=== PATIENT | female | born 1995 | race Hispanic/Latino ===

== ENCOUNTER 2018-08-31 22:26 | Inpatient (IN) | payer OTHER ==
[~2018-08-31 22:26] MED LIST: Bupivacaine/Epinephrine 0.25% 30 ML VIAL ONE
[2018-08-31 23:09] VITALS: BMI 31.1
[2018-09-01] MEDS ORDERED: Butorphanol Tartrate 1 MG/ML VIAL SLOW IVP PRN (00:05)
[2018-09-01] MEDS ORDERED: Acetaminophen 500 MG TAB PO PRN (00:05)
[2018-09-01] MEDS ORDERED: NS / Oxytocin 40 units/1000ml 1,000 ML IV PRN (00:05)
[2018-09-01] MEDS ORDERED: Ibuprofen 800 MG TAB PO PRN (00:05)
[2018-09-01] MEDS ORDERED: Lidocaine 1% (PF) 30 ML VIAL SC PRN ×2 (00:05→09:44)
[2018-09-01] MEDS ORDERED: Promethazine HCl 25 MG/ML VIAL IM PRN ×2 (00:05→15:46)
[2018-09-01] MEDS ORDERED: Misoprostol 200 MCG TAB PR PRN (00:05)
[2018-09-01] MEDS ORDERED: Ondansetron PF 4 MG/2 ML Vial IVP PRN ×3 (00:05→23:23)
--- NOTE | 2018-09-01 00:23 | PDOC.FPROB ---
FMR OB H&P: HPI - History of Present Illness Chief Complaint: contractions, leaking Indentification: 23 yr old G1 at 40.2 wks by LMP c/w 13.1 wk sono History of Present Illness: Patient reports loosing her mucous plug 2 days ago. Yesterday around 1100 she started to have contractions and then some more mucousy discharge that persisted with some blood with it. She was feeling contractions q 10 min and decided to come in. Primary Care Physician: Dr. Charisma Kaplan FMR OB H&P: Current - Care : G1 Para: 0 Gestational age: 40.2 Due date: 08/30/2018 Dating Criteria: LMP c/w 13.1 wk sono Total weight gain: approx 35 lbs Course/Complications: GERD and 3T anemia of - OB Labs Blood type: B RH: positive Antibody Screen: negative HIV: negative RPR: negative HepBsAg: negative Rubella: immune Quad screen: negative Urine drug screen: not done Gonorrhea: negative Chlamydia: negative Pap Smear: NILM on 02/05/2018 1 hour gtt: 89 A1c: 4.7 GBS: negative H&H: 10.5/30.8 Platelets: 190 Additional labs: quant gold neg - First Trimester Ultrasound First trimester: LMP RAGHAV: 08/30/17 LMP GA: 13.1 wks RAGHAV by US: 08/28/17 GA by US: 13.3 wks - Anatomy Survey Anatomy survey: 20.4 wk GA anatomy normal low lying placenta 1.5 cm from os - Additional Ultrasound Additional: 32.1 wks GA- fundal placenta, low lying resolved FMR OB H&P: History - Past Medical History PMH: none - OB History OB History: none - OFFAL SEPARATOR History OFFAL SEPARATOR History: none - Surgical History Sx History: none - Social History Social History: No smoking, drugs, alcohol FMR OB H&P: Medications - Current Home Medications: Medication Instructions Recorded Confirmed Type Pnv No.95/Ferrous Fum/Folic AC 1 tab PO DAILY 08/31/18 08/31/18 History [ Vitamins Tablet] Ranitidine HCl [Acid Design Assembler] 150 mg PO BID 08/31/18 08/31/18 History Allergies/Adverse Reactions: Allergies Allergy/AdvReac Type Severity Reaction Status Date / Time No Known Allergies Allergy Verified 08/31/18 23:01 FMR OB H&P: ROS - Review of Systems General: denies: fever/chills Eyes: denies: vision changes ENT: denies: nasal congestion, rhinorrhea Cardiovascular: denies: chest pain Respiratory: reports: cough, congestion. denies: shortness of breath Gastrointestinal: denies: abdominal pain, nausea, vomiting Genitourinary (Female): reports: vaginal discharge, contractions. denies: dysuria FMR OB H&P: Vital Signs - Maternal Vital signs: Vital Signs - First Documented Temp Pulse Resp BP 98.2 F 92 18 133/83 08/31/18 22:59 08/31/18 22:59 08/31/18 22:59 08/31/18 22:59 - Heart Tones Baseline: 145 Variability: moderate Acceleration: present Deceleration: absent Category: category 1 [place] contractions every: 2-5 min FMR OB H&P: Physical Exam - Physical Exam General: awake, alert and oriented HEENT: normocephalic and atraumatic Heart: RRR, normal S1/S2, no murmurs/rubs/gallops, no edema General: CTAB, no respiratory distress Abdomen: gravid, non-tender Skin: no rash, good tugor Lymphatic: no unusual bruising or bleeding Psychiatric: intact recent and remote memory - Pelvic Exam Vulva: normal hair distribution, no masses, no lesions Cervix: no masses, no lesions SVE: Bloody fluid, valsalva performed with fluid pooling FMR OB H&P: A/P - Problem List (1) Current Visit: Yes Status: Acute (2) SROM (spontaneous rupture of membranes) Current Visit: Yes Status: Acute Code(s): [id number] - (3) Anemia affecting Current Visit: Yes Status: Acute Code(s): O99.019 - ANEMIA COMPLICATING , UNSPECIFIED TRIMESTER Discussion: Date/Time: 09/01/18 0020 sIUP with SROM - Cat 1 strip, contractions q2-5 min - Sterile exam showed bloody pooling, valsalva with increased fluid. Best estimate is SROM @ 1100 on 08/31 though patient reports very minimal fluid - 2.5/80/-1 per nurse check @ 23:15 - plans to bottle feed - undecided on epidural - plan to admit to L&D for labor Anemia of in 3T - Hgb 10.5 Hx low lying placenta - resolved on 32 week ultrasound This H&P was discussed with Dr. Pérez who agrees with the above documentation and plan.
[2018-09-01] MEDS: Lactated Ringer's 1,000 ML IV SCH ×3 (00:25→16:53)
[2018-09-01 01:27] LABS: Hemoglobin 10.4 g/dL (12.0-16.0); Mean Corpuscular HGB CONC 33.4 g/dL (32.0-36.0); Mean Corpuscular Hemoglobin 25.9 pg (27.0-31.0); Mean Corpuscular Volume 77.6 fL (78.0-98.0); Mean Platelet Volume 9.9 fL (7.4-10.4); Platelet Count 180 thou/uL (130-400); RBC Distribution Width 13.4 % (11.5-14.5); Red Blood Cell (RBC) Count 4.01 mill/uL (4.20-5.40); White Blood Cell (WBC) Count 11.3 thou/uL (4.8-10.8)
--- NOTE | 2018-09-01 01:58 | PDOC.LDPN ---
Labor & Delivery Progress Note - Subjective Subjective: painful contractions - Objective Vital signs reviewed and normal: yes General: resting Dilation: 4 Effacement: 75% (80) Station: -1 FHT: category 1 (140/mod/+accel/no decel) [place] contractions every: 2-4 - Assessment (1) Current Visit: Yes Status: Acute (2) SROM (spontaneous rupture of membranes) Code(s): [id number] - Current Visit: Yes Status: Acute (3) Anemia affecting Code(s): O99.019 - ANEMIA COMPLICATING , UNSPECIFIED TRIMESTER Current Visit: Yes Status: Acute Plan: continue plan of care -: sIUP with SROM - Cat 1 strip, contractions q2-4 min increasingly more painful - Sterile exam showed bloody pooling, valsalva with increased fluid. Best estimate is SROM @ 1100 on 08/31 though patient reports very minimal fluid - 2.5/80/-1 per nurse check @ 23:15 - 4/80/-1 @ 0155. Morales score 9. - plans to bottle feed - undecided on epidural, has watched video Anemia of in 3T - Hgb 10.4 today Hx low lying placenta - resolved on 32 week ultrasound Dispo: continue current management, Bishops score favorable
[2018-09-01 02:56] LABS: Hep B Surf Ag NonReactive S/CO (NonReactive)
[2018-09-01 02:57] LABS: HBSAg Index 0.24 S/CO (0-0.99)
--- NOTE | 2018-09-01 05:56 | PDOC.LDPN ---
Labor & Delivery Progress Note - Subjective Subjective: painful contractions - Objective Vital signs reviewed and normal: yes General: breathing through contractions Dilation: 5 Effacement: 75% (80) Station: -1 FHT: category 1 (135/mod/+accel/no decel) [place] contractions every: 2-6 - Assessment (1) Current Visit: Yes Status: Acute (2) SROM (spontaneous rupture of membranes) Code(s): [id number] - Current Visit: Yes Status: Acute (3) Anemia affecting Code(s): O99.019 - ANEMIA COMPLICATING , UNSPECIFIED TRIMESTER Current Visit: Yes Status: Acute Plan: continue plan of care -: sIUP with SROM - Cat 1 strip, contractions q2-6 min increasingly more painful - Sterile exam showed bloody pooling, valsalva with increased fluid. Best estimate is SROM @ 1100 on 08/31 though patient reports very minimal fluid - 2.5/80/-1 per nurse check @ 23:15 - 4/80/-1 @ 0155. Morales score 9. - 5/80/-1 @ 0545 - plans to bottle feed - would like to wait on epidural Anemia of in 3T - Hgb 10.4 today Hx low lying placenta - resolved on 32 week ultrasound Dispo: continue current management
[2018-09-01] MEDS ORDERED: NS w/ Oxytocin 10 units 500 ML ONE (09:45)
[2018-09-01] MEDS ORDERED: NS w/ Oxytocin 10 units 500 ML IV SCH (09:45)
--- NOTE | 2018-09-01 10:00 | PDOC.LDPN ---
Labor & Delivery Progress Note - Subjective Subjective: comfortable, no concerns - Objective Vital signs reviewed and normal: yes General: NAD, resting Uterine fundus: non tender Dilation: 4 Effacement: 75% (80) Station: -1 FHT: category 1 (baseline 140), variability present (moderate variability) [place] contractions every: 5 minutes - Assessment (1) Anemia affecting Code(s): O99.019 - ANEMIA COMPLICATING , UNSPECIFIED TRIMESTER Current Visit: Yes Status: Acute (2) Current Visit: Yes Status: Acute (3) SROM (spontaneous rupture of membranes) Code(s): [id number] - Current Visit: Yes Status: Acute -: sIUP with SROM at 1100 on 08/31 -SVE shows - -Starting pitocin at this time -continue expectant management
--- NOTE | 2018-09-01 14:58 | PDOC.LDPN ---
Labor & Delivery Progress Note - Subjective Subjective: comfortable, no concerns - Objective Vital signs reviewed and normal: yes General: NAD Dilation: 5 Effacement: 90% Station: -1 FHT: category 1 (baseline 140s), variability present (moderate, accels present) [place] contractions every: 3 minues AROM: meconium stained fluid (likely forebag) IUPC placed: yes (adequate contractions seen >165 MVU/10 minutes) - Assessment (1) Anemia affecting Code(s): O99.019 - ANEMIA COMPLICATING , UNSPECIFIED TRIMESTER Current Visit: Yes Status: Acute (2) Current Visit: Yes Status: Acute (3) SROM (spontaneous rupture of membranes) Code(s): [id number] - Current Visit: Yes Status: Acute -: sIUP with SROM -Pt had bulging bag felt at cervix, likely forebag. Bag ruptured and IUPC placed. Pt has adequate contractions -SVE at this time shows /-1 -Continue expectant management
[2018-09-01] MEDS ORDERED: Fentanyl 4 mcg/Bup 0.1% Cadd 100 ML ONE (15:13)
[2018-09-01] MEDS ORDERED: Fentanyl 100 MCG/2 ML VIAL ONE (15:21)
[2018-09-01] MEDS ORDERED: diphenhydrAMINE 50 MG/ML VIAL IVP PRN (15:46)
[2018-09-01] MEDS ORDERED: Naloxone HCl 0.4 mg/ml Vial IVP PRN ×2 (15:46)
[2018-09-01] MEDS ORDERED: Eucerin (Mineral Oil/Petrolatum,White) 30 gm Jar TOP PRN (15:46)
[2018-09-01] MEDS ORDERED: Lactated Ringer's 500 ML IV PRN (15:46)
[2018-09-01] MEDS ORDERED: ePHEDrine/0.9% NaCl/PF SYRINGE 50 mg/10 ml SLOW IVP PRN (15:46)
[2018-09-01] MEDS ORDERED: Fentanyl 4 mcg/Bupivacaine 0.1% Cassette 100 ML EPIDURAL SCH (16:00)
[2018-09-01] MEDS ORDERED: Communication Order-Pharmacy FS SCH (16:00)
--- NOTE | 2018-09-01 17:36 | PDOC.LDPN ---
Labor & Delivery Progress Note - Subjective Subjective: comfortable - Objective Vital signs reviewed and normal: yes General: NAD Uterine fundus: non tender SVE: 17:00 Dilation: 5 Effacement: 100% Station: -1 FHT: category 1, variability present [place] contractions every: q3-4 min - Assessment (1) Term Code(s): Z34.80 - ENCOUNTER FOR SUPRVSN OF NORMAL , UNSP TRIMESTER Current Visit: Yes Status: Acute (2) Anemia affecting Code(s): O99.019 - ANEMIA COMPLICATING , UNSPECIFIED TRIMESTER Current Visit: Yes Status: Acute Plan: continue plan of care -: Cervical check unchanged from exam 2 hours prior in regards to dilation. 5/100/- 1. Pitocin at 14 with adequate MVU's. Recheck in 2 hours.
[2018-09-01] MEDS ORDERED: NS / Oxytocin 40 units/1000ml 1,000 ML ONE (19:29)
[2018-09-01] MEDS ORDERED: Lidocaine 1% (PF) 30 ML VIAL ONE (19:29)
[2018-09-01] MEDS ORDERED: Preparation H Ointment 28 GM TUBE PR PRN (23:23)
[2018-09-01] MEDS ORDERED: Lanolin Ointment 7 GM TUBE TOP PRN (23:23)
[2018-09-01] MEDS ORDERED: diphenhydrAMINE 25 MG CAP PO PRN (23:23)
[2018-09-01] MEDS ORDERED: Milk Of Magnesia 30 ML UDCUP PO PRN (23:23)
[2018-09-01] MEDS ORDERED: Benzocaine/Menthol 20-0.5% 60 ML CAN TOP PRN (23:23)
[2018-09-01] MEDS ORDERED: Bisacodyl 10 MG SUPP PR PRN (23:23)
[2018-09-01] MEDS ORDERED: NS / Oxytocin 40 units/1000ml 1,000 ML IV SCH (23:23)
[2018-09-02] MEDS: Ibuprofen 800 MG TAB PO SCH ×3 (01:20→21:43)
--- NOTE | 2018-09-02 05:27 | PDOC.PP ---
Post Progress Note Post Day #: 1 Subjective: Pt reports she did well over night. She states she has been up walking but states she is still having some pain. She states her bleeding is less than a period at this time. She denies nausea or lightheadedness with ambulation. She states she has voided well but has not passed any flatus. PO intake tolerated: yes Flatus: no Ambulation: yes Weight Weight 77.111 kg - Physical Examination General: NAD Cardiovascular: no m/r/g, RRR Respiratory: clear to auscultation bilaterally, non-labored breathing Abdominal: + bowel sounds, lochia, no distention, appropriately TTP Fundus firm & at: umbilicus Extremities: negative homans (B) Neurological: no gross focal deficits Psychiatric: A&Ox3, normal affect Result Diagrams: 09/01/18 01:07 Additional Labs: Post Labs Blood Type B POSITIVE 09/01/18 01:07 Hep Bs Antigen NonReactive S/CO (NonReactive) 09/01/18 01:07 (1) Anemia affecting Code(s): O99.019 - ANEMIA COMPLICATING , UNSPECIFIED TRIMESTER Status : Acute (2) Status: Acute (3) SROM (spontaneous rupture of membranes) Code(s): [id number] - Status: Acute - Assessment/Plan This is a 23 yo G1 now P1 who delivered via at 40.3 wks at 21:45 (09/01) Term delivered -Routine care -Encourage breast feeding and early ambulation Anemia effecting -QBL was 190 -Monitor for dizziness, orthostatis, or lightheadedness Prolonged rupture of membranes -Watch for signs of infection, consider abx if fevering Addendum - Attending - Attending Attestation Date/Time: 09/03/18 1122 I personally evaluated the patient and discussed the management with Dr. Brasher on 09/02/18 I agree with the History, Examination, Assessment and Plan documented above with any addition or exceptions noted below- Patient without complaints. Afebrile VSS. A/P: 1) PPD#1 s/p - Continue routine care.
--- NOTE | 2018-09-02 06:25 | PDOC.OPDEL ---
OB Operative/Delivery Note Delivery Dr/Surgeon: Junito/ Pre-Delivery Diagnosis: active labor Procedure/Post Delivery Dx: spontaneous vaginal delivery Weeks gestation: 40 (40.2) Anesthesia: epidural - Additional Findings/Plan Placenta delivered: spontaneous Repaired Obstetrical Laceration: 2nd degree Estimated blood loss: 190 Compilations/Other Findings: Delivering Physician: Junito Attending: Procedure: Spontaneous Vaginal Delivery Anesthesia: epidural, Local for Repair QBL: 190 ml Pre-op Diagnosis: 1. Term intrauterine in labor 2. 3T anemia of 3. GERD 4. low lying placenta resolved @ 32 wk US Post-op Diagnosis: 1. Term intrauterine , delivered 2. same as above Indications: A 23 y/o female presents in active labor. Delivery Note: This is 23yo F @ 40.2 wks who delivered a viable M infant at . Following an uneventful antepartum course, a vigorous M was delivered over an intact perineum in the occipitoanterior position. Anterior Shoulder and then remainder of the body delivered. No nuchal cord. The head was held down and mouth and nares were bulb suctioned. Cord clamped after delayed cord clamping and cut and cord blood collected. Placenta delivered intact in the [place] presentation with a 3 vessel cord noted. Fundal massage was performed and the fundus was firm. The cervix and vagina were inspected. 2nd degree perineal laceration noted and repaired with 3-0 vicryl in the usual fashion with good approximation and hemostasis after a local anesthetic was injected at site. went to nursery in good condition for routine care. Apgars were 9/9 at 1 & 5 minutes, respectively. Patient tolerated delivery well and went to after routine recovery/care. Post delivery plan: routine recovery
[2018-09-02] MEDS ORDERED: Adacel (T-DAP) 0.5 ML SYRINGE IM ONE (09:00)
[2018-09-02] MEDS: Ferrous Sulfate 325 MG TAB PO SCH ×2 (09:17→18:11)
[2018-09-02] MEDS: Prenatal Vitamin 1 TAB PO SCH (09:18)
[2018-09-02] MEDS: Docusate Calcium (SURFAK) 240 MG CAP PO SCH ×2 (09:18→21:43)
[2018-09-02] MEDS ORDERED: Famotidine 20 MG TAB PO SCH (10:15)
[2018-09-02] MEDS: Acetaminophen 325 MG TAB PO PRN (12:17)
[2018-09-02] MEDS: Famotidine 20 MG TAB PO SCH (21:43)
--- NOTE | 2018-09-03 05:25 | PDOC.PP ---
Post Progress Note Post Day #: 2 Subjective: Nursing reports pt had a headache overnight that resolved with rest and ibuprofen. She states she has been up walking, voiding, and passing gas. She denies any abdominal pain at this time. Family reports they are ready to go home. PO intake tolerated: yes Flatus: yes Ambulation: yes Vital Signs (12 hours) Temp Pulse Resp BP Pulse Ox 09/02/18 19:57 98.0 F 89 16 112/60 98 Weight Weight 77.111 kg - Physical Examination General: NAD Cardiovascular: no m/r/g, RRR Respiratory: clear to auscultation bilaterally, non-labored breathing Abdominal: + bowel sounds, lochia, no distention, appropriately TTP Fundus firm & at: 3 cm below umbilicus Extremities: negative homans (B) Neurological: no gross focal deficits Psychiatric: A&Ox3, normal affect Result Diagrams: 09/01/18 01:07 Additional Labs: Post Labs Blood Type B POSITIVE 09/01/18 01:07 Hep Bs Antigen NonReactive S/CO (NonReactive) 09/01/18 01:07 (1) Anemia affecting Code(s): O99.019 - ANEMIA COMPLICATING , UNSPECIFIED TRIMESTER Status : Acute (2) Status: Acute (3) SROM (spontaneous rupture of membranes) Code(s): [id number] - Status: Acute - Assessment/Plan This is a 23 yo G1 now P1 who delivered via at 40.3 wks at 21:45 (09/01) Term delivered -Routine care -Encourage breast feeding and early ambulation Anemia effecting -QBL was 190 -Monitor for dizziness, orthostatis, or lightheadedness Prolonged rupture of membranes -Watch for signs of infection, consider abx if fevering Addendum - Attending - Attending Attestation Date/Time: 09/03/18 1120 I personally evaluated the patient and discussed the management with Dr. Brasher I agree with the History, Examination, Assessment and Plan documented above with any addition or exceptions noted below- Patient without complaints. Ambulating/voiding. Afebrile VSS. A/P: 1) PPD#2 s/p - doing well. Plan to d/ c home today.
[2018-09-03] MEDS: Ibuprofen 800 MG TAB PO SCH ×2 (05:53→13:13)
[2018-09-03 08:17] VITALS: BP 111/75; TEMP 98.1
[2018-09-03] MEDS: Famotidine 20 MG TAB PO SCH (08:52)
[2018-09-03] MEDS: Prenatal Vitamin 1 TAB PO SCH (08:52)
[2018-09-03] MEDS: Docusate Calcium (SURFAK) 240 MG CAP PO SCH (08:52)
[2018-09-03] MEDS: Ferrous Sulfate 325 MG TAB PO SCH ×2 (08:53→17:24)
[2018-09-03] MEDS: Acetaminophen 325 MG TAB PO PRN (16:14)
== END 2018-09-03 17:05 | disposition home or self-care (01) | DRG 807 ==
LOC: L&D/OP 22:26 → L&D 09-01 03:52 → 3SE 09-02 05:26
PROVIDERS: ADMIT Family Medicine; ATTEND Family Medicine
PROC: 10E0XZZ Delivery of Products of Conception, External Approach (ICD-10-PCS; principal; 2018-09-01)
PROC: 0KQM0ZZ Repair Perineum Muscle, Open Approach (ICD-10-PCS; 2018-09-01)
DX: O99.02 Anemia complicating childbirth (principal); Z37.0 Single live birth; D64.9 Anemia, unspecified; Z3A.40 40 weeks gestation of pregnancy; O48.0 Post-term pregnancy; O70.1 Second degree perineal laceration during delivery
CPT/HCPCS: 36415; 51702; 85027; 86850; 86900; 86901; 87340; 99285; J2001; J2405; J3010